=== PATIENT | male | born 1980 | race Caucasian/White ===

== ENCOUNTER 2019-10-24 12:48 | Emergency (ER) | payer OTHER ==
[~2019-10-24] VITALS: Ht 195.6 cm; Wt 117.9 kg
[2019-10-24] MEDS ORDERED: PROPECIA1 MG PO (13:20)
[2019-10-24] MEDS ORDERED: NORCO 5-325 TA1 EAC2 PO (14:17)
[2019-10-24] MEDS ORDERED: KEFLEX500 M1 PO (14:17)
[2019-10-24 14:57] VITALS: BP 148/90
== END 2019-10-24 14:57 | disposition home or self-care (01) ==
LOC: M.ERS 12:48
DX: S61.201A Unspecified open wound of left index finger without damage to nail, initial encounter (principal); Z79.899 Other long term (current) drug therapy; W45.8XXA Other foreign body or object entering through skin, initial encounter; Y93.89 Activity, other specified; Y92.89 Other specified places as the place of occurrence of the external cause; Y99.8 Other external cause status

== ENCOUNTER 2021-04-03 19:48 | Emergency (ER) | payer BC ==
[~2021-04-03] VITALS: Ht 195.6 cm; Wt 115.7 kg
[~2021-04-03 19:48] MED LIST: KEFLEX500 M1 PO; NORCO 5-325 TA1 EAC2 PO; PROPECIA1 MG PO
[2021-04-03] MEDS ORDERED: CEPHALEXIN500 MG PO (20:48)
[2021-04-03 20:59] VITALS: BP 135/84
== END 2021-04-03 21:00 | disposition home or self-care (01) ==
LOC: M.ERS 19:48
DX: S61.012A Laceration without foreign body of left thumb without damage to nail, initial encounter (principal); W31.2XXA Contact with powered woodworking and forming machines, initial encounter; Y93.89 Activity, other specified; Y92.89 Other specified places as the place of occurrence of the external cause; Y99.8 Other external cause status